=== PATIENT | male | born 1970 | race Caucasian/White ===

== ENCOUNTER 2017-02-06 10:33 | Outpatient (CLI) | payer BC ==
--- NOTE | 2017-02-06 12:30 | RAD ---
SIX VIEWS LUMBAR SPINE: Date: 02-06-17 History: Lumbago. Lumbar radiculopathy. FINDINGS: Five non-rib bearing lumbar type vertebral bodies are visualized. The vertebral body heights and inte rvertebral disc spaces are within normal limits. Minimal osteophytes are seen anteriorly at multiple levels. No fracture or subluxation is seen. No abnormal translational motion is seen between the flex ion and extension views. IMPRESSION: 1. No fracture or subluxation involving the lumbar spine. 2. Minimal degenerative changes. POS: GLEN
== END 2017-02-06 10:34 | disposition home or self-care (01) ==
LOC: RAD 10:33
PROVIDERS: ATTEND Chiropractor
DX: M47.26 Other spondylosis with radiculopathy, lumbar region (principal)
CPT/HCPCS: 72100

== ENCOUNTER 2017-04-21 09:40 | Day surgery (SDC) | payer BC ==
[2017-04-20 15:03] VITALS: BMI 30.4
[2017-04-21] MEDS ORDERED: Midazolam HCl 2 mg/2 ml Vial ONE (10:31)
[2017-04-21] MEDS ORDERED: Fentanyl 100 MCG/2 ML VIAL ONE (10:31)
[2017-04-21] MEDS ORDERED: Ondansetron HCl/PF 4 MG/2 ML Vial ONE (11:43)
[2017-04-21] MEDS ORDERED: Famotidine/PF 20 mg/2ml Vial ONE (11:43)
--- NOTE | 2017-04-21 13:27 | MRI ---
MRI LUMBAR SPINE WITHOUT CONTRAST: HISTORY: Low back pain. COMPARISON: Radiograph from 02/06/2017. FINDINGS: The paraspinal musculature is normal. The aortic contour is nonaneurysmal. The kidneys are unremark able. Background marrow signal of the lumbar spine is maintained. The conus medullaris terminates at the m id L1 vertebral body. Levels are as follows: T12-L1: Normal. L1-L2: Normal. L2-L3: Normal. L3-L4: Circumferential disk bulge, mild, with mild bilateral neural foraminal narrowing. The spinal canal measures 8 mm. L4-L5: Normal. L5-S1: Normal. IMPRESSION: Mild degenerative disk space height loss at L3-L4 with circumferential disk bulge causing mild bilate ral neural foraminal narrowing as well as some effacement of the ventral cerebrospinal fluid space, n arrowing it to 8 mm. POS: SHANNON
== END 2017-04-21 14:10 | disposition home or self-care (01) ==
LOC: SDC/OP 09:40
PROVIDERS: ATTEND Neurological Surgery
DX: M51.36 Other intervertebral disc degeneration, lumbar region (principal); E78.5 Hyperlipidemia, unspecified; I10 Essential (primary) hypertension
CPT/HCPCS: 72148; J2250; J2405; J3010; S0028